=== PATIENT | male | born 1965 | race African-American/Black ===

== ENCOUNTER 2020-05-01 19:43 | Emergency (ER) | payer OTHER ==
[2020-05-01 19:55] VITALS: BMI 36.2
[2020-05-01] MEDS ORDERED: LIDOCAINE PATCH REMOVAL MC SCH ×2 (22:00)
[2020-05-01] MEDS ORDERED: LIDOCAINE 5% TOPICAL PATCH TP ONE ×2 (22:04→23:29)
[2020-05-01] MEDS ORDERED: LIDOCAINE 5% TOPICAL PATCH ONE ×2 (22:08→23:51)
[2020-05-01 22:21] LABS: URINE AMPHETAMINES NEGATIVE ng/ml (CUTOFF=500); URINE BARBITURATES NEGATIVE ng/ml (CUTOFF=200)
[2020-05-01 22:23] LABS: COCAINE, UR NEGATIVE ng/ml (CUTOFF=300); METHADONE, UR NEGATIVE ng/ml (CUTOFF=300); OPIATES, URI NEGATIVE ng/ml (CUTOFF=300); PHENCYCLIDINE,URINE NEGATIVE ng/ml (CUTOFF=25); URINE BENZODIAZEPINES NEGATIVE ng/ml (CUTOFF=200)
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
[2020-05-01 23:14] LABS: BASO % 0.6 % (0-2.0); EOS % 3.3 % (0-4.5); HEMATOCRIT 43.6 % (35.4-49); HEMOGLOBIN 14.5 GM/dL (11.7-16.9); LYMPH % 27.3 % (8-40); MCH 30.1 pg (25.7-33.7); MCHC 33.3 g/dl (32.0-35.9); MEAN CELL VOLUME 90.4 fl (80-96); MEAN PLT VOLUME 7.6 fl (7.5-11.1); MONO % 13.2 % (3.8-10.2); NEUT % 55.6 % (42.8-82.8); PLATELET COUNT 267 K/MM3 (134-434); RBC 4.82 M/mm3 (4.00-5.60); WHITE BLOOD COUNT 6.1 K/mm3 (4.0-10.0)
[2020-05-01 23:40] LABS: ALBUMIN 3.8 g/dl (3.4-5.0); BILIRUBIN,TOTAL 1.1 mg/dL (0.2-1); BLOOD UREA NITROGEN 16.3 mg/dL (7-18); CREATININE 1.3 mg/dL (0.55-1.3); POTASSIUM 3.9 mmol/L (3.5-5.1); TOT PROT 7.8 g/dl (6.4-8.2)
[2020-05-01 23:47] LABS: CALCIUM 9.3 mg/dL (8.5-10.1)
[2020-05-01] MEDS ORDERED: diphenhydrAMINE HCL 25 MG CAPSULE (FP) PO ONE (23:51)
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
[2020-05-02] MEDS ORDERED: diphenhydrAMINE HCL 25 MG CAPSULE (FP) PO ONE (00:13)
[2020-05-02] MEDS ORDERED: LACTULOSE 20 GM/30 ML UDC (FOR ORAL USE ONLY) PO ONE (01:04)
[2020-05-02] MEDS ORDERED: QUEtiapine FUMARATE 300 MG TABLET PO ONE (01:05)
[2020-05-02] MEDS ORDERED: LACTULOSE 20 GM/30 ML UDC (FOR ORAL USE ONLY) ONE (01:08)
[2020-05-02] MEDS ORDERED: QUEtiapine FUMARATE 100 MG TABLET (FP) ONE (01:09)
[2020-05-02 06:49] VITALS: BP 142/83; PULSE 53; TEMP 97.4
[2020-05-02] MEDS ORDERED: LIDOCAINE 5% TOPICAL PATCH TP ONE ×2 (07:43→08:00)
--- NOTE | 2020-05-02 07:51 | PDOC ---
*Physical Exam - Vital Signs Last Vital Signs Temp Pulse Resp BP Pulse Ox 97.4 F L 53 L 16 142/83 97 05/02/20 06:48 05/02/20 06:48 05/02/20 06:48 05/02/20 06:48 05/02/20 06:48 - Physical Exam Received signout from Dr. Sandoval regarding this 55 YOM h/o schizophrenia w/ arm pain. - Currently pending psychiatric consultation 05/02/20 10:24 General Appearance: Yes: Appropriately Dressed HEENT: positive: EOMI, FEROZ, Normal ENT Inspection, Normal Voice, Symmetrical, TMs Normal, Pharynx Normal Neck: positive: Trachea midline, Normal Thyroid Respiratory/Chest: positive: Lungs Clear, Normal Breath Sounds Cardiovascular: positive: Regular Rhythm, Regular Rate, S1, S2 ED Treatment Course - LABORATORY CBC & Chemistry Diagram: 05/01/20 23:00 05/01/20 23:00 - ADDITIONAL ORDERS Additional order review: Laboratory Results 05/01/20 05/01/20 05/01/20 23:00 23:00 21:38 Sodium 138 Potassium 3.9 Chloride 106 Carbon Dioxide 24 Anion Gap 8 BUN 16.3 Creatinine 1.3 Est GFR (CKD-EPI)AfAm 71.69 Est GFR (CKD-EPI)NonAf 61.86 Random Glucose 247 H Calcium 9.3 Total Bilirubin 1.1 H AST 26 ALT 40 Alkaline Phosphatase 92 Total Protein 7.8 Albumin 3.8 Salicylates < 1.7 L Opiates Screen Negative Methadone Screen Negative Acetaminophen < 2.0 Barbiturate Screen Negative Phencyclidine Screen Negative Ur Amphetamines Screen Negative MDMA (Ecstasy) Screen Negative Benzodiazepines Screen Negative Cocaine Screen Negative U Marijuana (THC) Screen Negative 05/01/20 23:00 RBC 4.82 MCV 90.4 MCHC 33.3 RDW 14.0 MPV 7.6 Neutrophils % 55.6 Lymphocytes % 27.3 Monocytes % 13.2 H Eosinophils % 3.3 Basophils % 0.6 - Medications Given in the ED: ED Medications Discontinued Medications Generic Name Dose Route Start Last Admin Trade Name Freq PRN Reason Stop Dose Admin Diphenhydramine HCl 50 mg 05/02/20 00:13 05/02/20 00:14 Benadryl - PO 05/02/20 00:14 50 mg ONCE ONE Administration Lactulose 20 gm 05/02/20 01:04 05/02/20 01:13 Cephulac (Oral Use) PO 05/02/20 01:05 20 gm ONCE ONE Administration Lidocaine 1 patch 05/01/20 22:04 05/01/20 22:23 Lidoderm Patch - TP 05/01/20 22:05 1 patch ONCE ONE Administration Lidocaine 1 patch 05/01/20 23:29 05/02/20 00:00 Lidoderm Patch - TP 05/01/20 23:30 1 patch ONCE ONE Administration Quetiapine Fumarate 300 mg 05/02/20 01:05 05/02/20 01:33 Seroquel - PO 05/02/20 01:06 Not Given ONCE ONE Medical Decision Making - Medical Decision Making 55 YOM h/o schizophrenia - awaiting psychiatric consultation - complaining of shoulder pain - will give lidocaine patch and tylenol 05/02/20 10:24 -pt arm pain has improved - psych consult reports patient not acutely psychotic, ok for dc - patient A and O x3 - spoke with the family 05/02/20 10:27 Discharge - Discharge Information Problems reviewed: Yes Clinical Impression/Diagnosis: Schizophrenia Qualifiers: Schizophrenia type: unspecified Qualified Code(s): F20.9 - Schizophrenia, unspecified Condition: Stable - Follow up/Referral - Patient Discharge Instructions Additional Instructions: You were seen in the emergency department for shoulder pain. you received labs which were normal and medication which improved your pain. Please return to the hospital if you experience chest pain, shortness of breath, fever, chills, nausea, vomiting, loss of sensation or blood flow into your arm. Please follow up with your primary care doctor regarding your visit to the ER. You can hurt your shoulder by using it too much during an activity, such as fishing or baseball. It can also happen as part of the everyday wear and tear of getting older. Shoulder injuries can be slow to heal, but your shoulder should get better with time. Your doctor may recommend a sling to rest your shoulder. If you have injured your shoulder, you may need testing and treatment. Follow-up care is a wolfe part of your treatment and safety. Be sure to make and go to all appointments, and call your doctor or nurse call line if you are having problems. It's also a good idea to know your test results and keep a list of the medicines you take. How can you care for yourself at home? Take pain medicines exactly as directed. If the doctor gave you a prescription medicine for pain, take it as prescribed. If you are not taking a prescription pain medicine, ask your doctor if you can take an [id number] medicine. Do not take two or more pain medicines at the same time unless the doctor told you to. Many pain medicines contain acetaminophen, which is Tylenol. Too much acetaminophen (Tylenol) can be harmful. If your doctor recommends that you wear a sling, use it as directed. Do not take it off before your doctor tells you to. Put ice or a cold pack on the sore area for 10 to 20 minutes at a time. Put a thin cloth between the ice and your skin. If there is no swelling, you can put moist heat, a heating pad, or a warm cloth on your shoulder. Some doctors suggest alternating between hot and cold. Rest your shoulder for a few days. If your doctor recommends it, you can then begin gentle exercise of the shoulder, but do not lift anything heavy. - Post Discharge Activity Work/Back to School Note: My Personal Safety Plan
[2020-05-02] MEDS ORDERED: ACETAMINOPHEN 500 MG TABLET (FP) PO ONE (08:00)
[2020-05-02] MEDS ORDERED: ACETAMINOPHEN 325 MG TABLET (FP) ONE (08:03)
[2020-05-02] MEDS ORDERED: LIDOCAINE 5% TOPICAL PATCH ONE (08:04)
--- NOTE | 2020-05-02 10:05 | CON.PSY ---
Psychiatry Consult Chief Complaint: Asked to see patient for hx of Paranoid Schizophrenia - Current Medications Current Medications: Active Medications Miscellaneous (Lidoderm Patch Removal) 1 each [facility] DAILY@2200 JUNIOR Miscellaneous (Lidoderm Patch Removal) 1 each MC DAILY@2200 JUNIOR - Allergies Allergies: Allergies Allergy/AdvReac Type Severity Reaction Status Date / Time No Known Allergies Allergy Verified 05/01/20 19:55 - Mood Mood: Other (neutral) - Speech/Language Expressive: Delayed, Talkative Receptive: Unable to Receive/Comprehend Spoken Words - Psychomotor Activity Psychomotor Activity: Normal - Thought Process Thought Process: Circumstantial, Loosening of Associations - Thought Content Hallucinations: Absent Delusions: Absent Type: Other (that he was poisoned) - Self Perception Self Perception: No Impairment - Cognition Attention: Alert, Other Orientation: Time, Person Memory, Immediate Recall: Impaired - Abstraction Judgement: Severely Impaired - Insight Insight: Impaired - Suicidal Ideation Suicidal Ideation: No - Homicidal Ideation Homicidal Ideation: No Assessment/Plan Paranoid Schizophrenia Patient is not acutely psychotic at this time. Rec: Dc home after speaking with family
[2020-05-02] MEDS ORDERED: LIDOCAINE PATCH REMOVAL MC SCH ×2 (22:00)
== END 2020-05-02 11:00 | disposition home or self-care (01) ==
LOC: JER 19:43
DX: M25.512 Pain in left shoulder (principal); F20.9 Schizophrenia, unspecified
CPT/HCPCS: 36415; 70450-TC; 80053; 80307; 85025; 99285-25